=== PATIENT | female | born 1950 | race American Indian/Alaskan Native ===

== ENCOUNTER 2019-02-24 13:02 | Outpatient (CLI) | payer MEDICARE ==
--- NOTE | 2019-03-16 13:29 | Cat Scan Report ---
CT CHEST, ABDOMEN, AND PELVIS WITH IV CONTRAST INDICATION / CLINICAL INFORMATION: LYMPHEDEMA OF LOWER EXTREMITY. TECHNIQUE: Axial CT images were obtained through the chest, abdomen, and pelvis after 100 mL Omnipaque [address] All [address] scans at this location are performed using CT dose reduction for ALARA by means of aut omated exposure control. COMPARISON: None available. FINDINGS: HEART: No significant abnormality. THORACIC AORTA: No significant abnormality. MEDIASTINUM and DORON: No significant abnormality. LUNGS: Mild bibasilar edema. PLEURA: Moderate bilateral pleural effusions which are dependent and layering. No pneumothorax. ADDITIONAL CHEST FINDINGS: Moderate body wall edema especially involving the breasts. Mildly enlarged bilateral axillary lymph nodes with the largest right axillary lymph node measuring 1.2 cm in short axis. Enlarged lymph node in the base of the left neck measuring 1.7 cm in short axis as seen on axia l series 4 image 28. LIVER: No significant abnormality. GALLBLADDER: Gallbladder is distended without acute abnormality. BILE DUCTS: No significant abnormality. PANCREAS: No significant abnormality. SPLEEN: No significant abnormality. ADRENALS: No significant abnormality. RIGHT KIDNEY and URETER: No significant abnormality. LEFT KIDNEY and URETER: No significant abnormality. STOMACH and SMALL BOWEL: Fluid-filled, nondilated small bowel. COLON: No significant abnormality. APPENDIX: Not visualized. PERITONEUM: Small amount of free fluid in the pelvis. No free air. No fluid collection. LYMPH NODES: No significant mesenteric or retroperitoneal lymph nodes. Mild prominent bilateral ingui nal lymph nodes which could be reactive. AORTA and ARTERIES: No significant abnormality. IVC and VEINS: No acute abnormality. URINARY BLADDER: No significant abnormality. REPRODUCTIVE ORGANS: Uterus is absent. No significant adnexal abnormality. ADDITIONAL FINDINGS: Extensive body wall edema in the abdomen and pelvis. SKELETAL SYSTEM: Postoperative findings of the lumbar spine. No acute osseous abnormality. IMPRESSION: 1. Moderate bilateral pleural effusions, ascites, and extensive body wall edema characteristic of luis sarca or other fluid imbalance. 2. Enlarged axillary and left neck base adenopathy. Lymph nodes could be reactive to underlying anasa rca process but follow-up CT chest, abdomen, and pelvis with contrast is recommended after resolution of the acute episode. Signer Name: Peg Monge MD Signed: 03/16/2019 1:24 PM Workstation Name: [id number]
== END 2019-02-24 13:03 | disposition home or self-care (01) ==
LOC: CT 13:02
PROVIDERS: ATTEND Internal Medicine Hematology & Oncology
DX: J90 Pleural effusion, not elsewhere classified (principal); I89.0 Lymphedema, not elsewhere classified; Z90.710 Acquired absence of both cervix and uterus
CPT/HCPCS: 71260; 74177; Q9967